=== PATIENT | male | born 1985 ===

== ENCOUNTER 2017-12-26 09:32 | Emergency (ER) | payer BC ==
[2017-12-26 09:37] VITALS: TEMP 98
[2017-12-26 09:38] VITALS: BMI 36.9
--- NOTE | 2017-12-26 10:56 | ED PDOC ---
Lower Extremity Pain/Injury Time Seen by Provider: 12/26/17 10:01 Chief Complaint (Nursing): Lower Extremity Problem/Injury Chief Complaint (Provider): Left Ankle Pain History Per: Patient History/Exam Limitations: no limitations Onset/Duration Of Symptoms: Days Current Symptoms Are (Timing): Still Present Additional Complaint(s): 32 year old male presents to the emergency department complaining of left ankle pain. Patient reports the he injured his left ankle last night while running to secure a parking spot. He states that he is able to bare weight but with pain. Denies knee and hip pain, injury or fall. PMD: FAMILY PROVIDER,NO Past Medical History Reviewed: Historical Data, Nursing Documentation, Vital Signs Vital Signs: Last Vital Signs Temp 98 F 12/26/17 09:36 Pulse 89 12/26/17 09:36 Resp BP 126/79 12/26/17 09:36 Pulse Ox 96 12/26/17 09:36 - Medical History PMH: No Chronic Diseases - Surgical History Surgical History: No Surg Hx - Family History Family History: States: Unknown Family Hx - Social History Current smoker - smoking cessation education provided: Yes - Home Medications Home Medications: Ambulatory Orders Medication Instructions Recorded Ibuprofen [Motrin Tab] 600 mg PO Q6 PRN #15 tab 12/26/17 - Allergies Allergies/Adverse Reactions: Allergies Allergy/AdvReac Type Severity Reaction Status Date / Time No Known Allergies Allergy Verified 12/26/17 09:45 Review of Systems ROS Statement: Except As Marked, All Systems Reviewed And Found Negative Musculoskeletal: Positive for: Other (left ankle pain) Physical Exam - Reviewed Nursing Documentation Reviewed: Yes Vital Signs Reviewed: Yes - Physical Exam Appears: Positive for: Non-toxic, No Acute Distress Extremity: Positive for: Tenderness (Left lower extremity tender b/l malleoli with mild edema), Other (Achilles appears intact; distal foot non tender .). Negative for: Deformity Neurologic/Psych: Positive for: Alert, Oriented - ECG O2 Sat by Pulse Oximetry: 96 (RA) Pulse Ox Interpretation: Normal Medical Decision Making Medical Decision Makin Initial Impression 32 year old male presenting with left ankle injury Initial Plan: * Motrin Tab 600 mg * RAD ankle left * RAD foot left * Reevaluation Xray performed, read by me shows no fracture. Podiatry consult ordered. 1115 Podiatry put patient in Davison dressing will f/u with podiatry clinic. MAX HUMBERTO, thank you for letting us take care of you today. Your provider was Tam Cummings III, DO and you were treated for TWISTED LT ANKLE. The emergency medical care you received today was directed at your acute symptoms. If you were prescribed any medication, please fill it and take as directed. It may take several days for your symptoms to resolve. Return to the Emergency Department if your symptoms worsen, do not improve, or if you have any other problems. Please contact your doctor or call one of the physicians/clinics you have been referred to that are listed on the Patient Visit Information form that is included in your discharge packet. Bring any paperwork you were given at discharge with you along with any medications you are taking to your follow up visit. Our treatment cannot replace ongoing medical care by a primary care provider outside of the emergency department. Thank you for allowing the [email or web address] team to be part of your care today. If you had an X-Ray or CT scan: A Radiologist will review the ED reading if any change in treatment is needed we will contact you. Documented by Olga Schultz acting as a scribe for Tam Cummings III, DO. All medical record entries made by the Scribe were at my direction and personally dictated by me. I have reviewed the chart and agree that the record accurately reflects my personal performance of the history, physical exam, medical decision making, and the department course for this patient. I have also personally directed, reviewed, and agree with the discharge instructions and disposition. Disposition - Clinical Impression Clinical Impression: Ankle injury - Patient ED Disposition Is Patient to be Admitted: No Counseled Patient/Family Regarding: Studies Performed, Diagnosis, Need For Followup - Disposition Referrals: Podiatry Clinic [Outside] Disposition: Routine/Home Disposition Time: 11:20 Condition: STABLE Additional Instructions: Return to ER for any worse or new symptoms. Use motrin for pain, keep elevated today, followup with podiatry clinic as directed. Prescriptions: Ibuprofen [Motrin Tab] 600 mg PO Q6 PRN #15 tab PRN Reason: Pain, Moderate (4-7) Instructions: Ankle Sprain (DC) Forms: [facility] (Albanian) - POA Present On Arrival: None
[2017-12-26 11:41] VITALS: BP 122/82; PULSE 82; RESP 16; O2SAT 98
--- NOTE | 2017-12-26 13:56 | CP.PCM.CON ---
History of Present Illness - History of Present Illness History of Present Illness: Podiatry Consult note: Dr. Epperson 32 year old male with no significant PMHx was evaluated at bedside for left ankle pain. Patient reports that he was running towards his parked car when he twisted his left ankle and ended up hurting himself. Patient reports that at the time of the injury his pain was approx 8/10 on VAS. Reports that after the injury he soaked his foot and ankle in warm salt water and applied ice overnight. Patient denies of taking any pain medications. This morning, grades his pain as 2/10 on VAS. Reports that he is able to bear weight to the left side but he has some pain. States that the pain and swelling has significantly improved since last night. Denies of any other pedal complains at this time. Denies of any recent F/N/V/C/SOB/CP/headache. PMHx: Denies PSHx: Denies Allergies: N.K.D.A SHx: Smokes 1 pack in 2 days for 15 years, occasional EtOH, denies illicit drug usage FMx: non-contributory Meds: denies Review of Systems - Constitutional Constitutional: As Per HPI Past Patient History - Past Social History Smoking Status: Light Smoker < 10 Cigarettes Daily - PSYCHIATRIC Hx Substance Use: No - SURGICAL HISTORY Hx Surgeries: No - ANESTHESIA Hx Anesthesia: No Meds Home Medications: Home Medication List Medication Instructions Recorded Confirmed Type Ibuprofen [Motrin Tab] 600 mg PO Q6 PRN #15 tab 12/26/17 Rx Allergies/Adverse Reactions: Allergies Allergy/AdvReac Type Severity Reaction Status Date / Time No Known Allergies Allergy Verified 12/26/17 09:45 Physical Exam - Constitutional Appears: Well, Non-toxic, No Acute Distress - Extremities Exam Additional comments: Bilateral LE focused exam: VASC: DP/PT pulses are palpable 2/4 B/L. Cap refill time: < 3 seconds to all digits. Skin temperature warm to cool from proximal to distal. no pitting or non -pitting edema noted on the right, very minimal non-pitting edema noted localized to posterior lateral left ankle joint DERM: no onen lesions, no inter digital maceration, nails are cut to hygienic length, no clinical suspicion of active infection NEURO: Epicritic and protective sensation intact ORTHO: no pain during palpation of the lateral and medial collateral ligaments, no pain during AROM in all 4 direction at the ankle joint, very minimal tenderness during passive inversion and eversion, no pain during passive dorsiflexion and plantarflexion, pain during palpation of the peroneal tendons localized to posterior to lateral mal during deep palpation, no pain during palpation of the base of the 5th metatarsal, no pain during palpation of the insertion of the [place]'s tendon, MMT: 5/5 in all four direction at the ankle joint - Neurological Exam Neurological exam: Alert, Oriented x3 - Psychiatric Exam Psychiatric exam: Normal Affect, Normal Mood Results - Vital Signs Recent Vital Signs: Last Vital Signs Temp 98 F 12/26/17 09:36 Pulse 82 12/26/17 11:40 Resp 16 12/26/17 11:40 BP 122/82 12/26/17 11:40 Pulse Ox 98 12/26/17 11:40 Assessment & Plan - Assessment and Plan (Free Text) Assessment: 32 year old male with no significant PMHx was evaluated for left lateral ankle sprain Plan: Patient seen and evaluated Discussed patient in details with attending Dr. Epperson Vitals and charts reviewed - afebrile X-rays of the foot and ankle ordered/reviewed - mild increase in soft tissue density on the lateral aspect of the left ankle consistent with soft tissue swelling secondary to injury, no acute fractures or dislocations noted Patient placed in orellana compressive dressing Surgical shoe provided Educated patient of RICE protocol Educated patient to take OTC pain medication of pain is not tolerated well Educated patient to prevent any strenuous/physical sporting activity at this time Educated patient to follow up in podiatry clinic Patient demonstrated verbal understanding Thank you for the podiatry consult and allowing to take part in patient care - Date & Time Date: 12/26/17 Time: 11:00
--- NOTE | 2017-12-26 14:29 | RAD ---
Date of service: 12/26/2017 PROCEDURE: Left Ankle Radiographs. HISTORY: L ankle pain COMPARISON: None FINDINGS: BONES: Normal. No fracture. JOINTS: Small osteophyte seen arising from the anterior inferior margin of the tibia the along the tibiotalar articulation. SOFT TISSUES: There is mild soft tissue swelling over the lateral and to a lesser degree medial malleoli. . OTHER FINDINGS: None. IMPRESSION: No evidence of acute displaced fracture nor dislocation. Soft tissue swelling lateral greater than medial. Mild degenerative changes tibiotalar articulation.
--- NOTE | 2017-12-26 14:36 | RAD ---
Date of service: 12/26/2017 PROCEDURE: Left Foot Radiographs. HISTORY: L ankle pain COMPARISON: Correlation made with concurrent radiographs of the left ankle FINDINGS: BONES: Normal. No fracture. JOINTS: Minor hallux valgus deformity seen. Small osteophyte seen arising from the anterior inferior margin of the tibia the along the tibiotalar articulation. SOFT TISSUES: Normal. OTHER FINDINGS: None. IMPRESSION: No evidence acute displaced fracture nor dislocation. Minor arthritis. Small osteophyte seen arising from the anterior inferior margin of the tibia at the level of the tibiotalar articulation.
== END 2017-12-26 11:41 | disposition home or self-care (01) ==
LOC: H.ER 09:32
DX: S99.912A Unspecified injury of left ankle, initial encounter (principal); X50.1XXA Overexertion from prolonged static or awkward postures, initial encounter; Y93.02 Activity, running; Y92.89 Other specified places as the place of occurrence of the external cause